=== PATIENT | male | born 1940 | race Caucasian/White ===

== ENCOUNTER 2016-10-02 09:09 | Emergency (ER) | payer MEDICARE ==
[2016-10-02 09:37] LABS: ABSOLUTE NEUTROPHIL COUNT 3.2 K/mm3 (1.8-7.7); BASO % 0.6 % (0.2-1.0); EOS # 0.1 (0.0-0.5); EOS % 1.6 % (0.9-2.9); HEMATOCRIT 44.2 % (32.0-52.0); IMM NEUT% 0.2 % (0-1); LYMPH # 2.4 (1.0-4.8); LYMPH % 38.2 % (15-45); MEAN CORPUSCULAR HEMOGLOBIN 30.5 pg (27.0-31.0); MEAN CORPUSCULAR HGB CONC 33.9 g/dl (33.0-37.0); MEAN PLATELET VOLUME 10.1 fl (7.4-10.4); MONO # 0.5 (0.0-0.8); MONO % 7.4 % (4-12); PLATELET COUNT 235 K/mm3 (130-400)
[2016-10-02] MEDS ORDERED: PROPOFOL 20 ML IV ONE (09:46)
[2016-10-02] MEDS ORDERED: DILTIAZEM HCL 5 MG/ML 5ML VIAL IV ONE (09:56)
[2016-10-02 10:03] LABS: ALB/GLOB RATIO 1.5 (>1.0); ALBUMIN 4.2 gm/dL (3.5-5.7); CALCIUM 9.4 mg/dL (8.6-10.3)
[2016-10-02] MEDS ORDERED: CALCIUM GLUCONATE 1,000 MG/10 ML VIAL ONE (10:20)
== END 2016-10-02 13:05 | disposition home or self-care (01) ==
LOC: ED 09:09
DX: I48.91 Unspecified atrial fibrillation (principal); R00.1 Bradycardia, unspecified; G47.30 Sleep apnea, unspecified; Z79.82 Long term (current) use of aspirin; Z79.899 Other long term (current) drug therapy
CPT/HCPCS: 85025; 80053; 84484; 96375 ×2; 96376 ×2; 99284 ×2; 96374; 96361; J0610